=== PATIENT | female | born 1985 | race Caucasian/White ===

== ENCOUNTER 2017-03-10 19:23 | Outpatient (CLI) | payer OTHER ==
[~2017-03-10] VITALS: Ht 152.4 cm; Wt 90.7 kg
[2017-03-10 19:42] VITALS: Ht 152.4 cm; Wt 90.7 kg
--- NOTE | 2017-03-10 20:12 | RADRPT ---
PROCEDURE: US OB biophysical profile. CLINICAL INDICATION: Evaluate well-being TECHNIQUE: Multiple sonographic images of the pelvis were obtained. The images were reviewed on a PACS workstation. COMPARISON: None FINDINGS: There is a single viable intrauterine gestation. There is a normal amount of amniotic fluid with an NILSON = 10.28 cm cm. Cardiac activity is present with 154 beats per minute beats per minute. There is a vertex presentation. The placenta is posterior. Biophysical profile: movement 2/2 tone 2/2. breathing 2/2 NILSON 2/2 Total 03/16 IMPRESSION: 1. Single viable intrauterine gestation in cephalic presentation. 2. The biophysical profile is normal measuring 8. RPTAT:AAJJ . Physician Kelsea Date Time Electronically viewed and signed by Physician Kelsea on 03/10/2017 20:11 /
--- NOTE | 2017-03-10 20:54 | TRIAGE ---
OB Triage Datetime Report Generated by CPN: 03/10/2017 20:54 Datetime: 03/10/2017 20:45 Stage of : OB Triage Datetime: 03/10/2017 20:22 Labor Evaluation Frequency: OCC Monitor Mode: External Duration (sec)2399: 60-90 Pattern: Normal: <= 5 Contractions in 10 Minutes Heart Rate FHR Baseline Rate: 135 Monitor Mode: External US FHR Baseline Changes: No Baseline Change Variability: Moderate 6-25 bpm Accelerations: 15X15 Datetime: 03/10/2017 19:40 Stage of : OB Triage Datetime: 03/10/2017 19:35 Assessment Type: Triage Maternal Assessment Level of Consciousness: Fully Conscious Headache: Denies Blurred Vision: No Respiratory Effort: Unlabored; Regular Rhythm; Equal Expansion Nausea/Vomiting: Denies RUQ Epigastric Pain: Denies Facial Edema: None Fall Risk Assessment History of Falling: (0) No Secondary Diagnosis: (0) No Ambulatory Aid: (0) Bedrest/Nurse Assist IV Therapy: (0) No Gait: (0) Normal/Bedrest/Immobile Mental Status: (0) Oriented to Own Ability Fall Score: 0 Fall Risk Score Definition: No Risk: No action required Datetime: 03/10/2017 19:28 Time of Arrival: 03/10/2017 19:22 EGA: 37.4 Arrived By: Ambulatory Arrived From: Office Chief Complaint: SENT IN FROM OFFICE WITH ORDERS FOR WORKUP REGARDING C/O DFM Movement: Decreased Contractions: Denies/Absent Rupture of Membranes: Denies Vaginal Discharge: Denies Recent Sexual Intercouse: Denies Abdominal Trauma: Not Applicable Initial Plan: EFM, BPP, CALL OB
--- NOTE | 2017-03-10 23:59 | PN ---
Triage Information Date/Time March 10, 2017 Reason for visit: DFM Weeks of Gestation 37 weeks and 4 days /Para 2 para 1 Diabetes: none Hypertention: none Additional information 31 years old female with IUP at 37 weeks and 4 days presented with complaint of decreased movement. Denies any LOF or uterine contractions. had scant light spotting today after she wiped. Denies any vaginal bleeding Has a history of section x 1. Scheduled for repeat C/S at 39 weeks. Objective Heart Rate: 130's Contractions: None Results/Medications Imaging Results PROCEDURE: US OB biophysical profile. CLINICAL INDICATION: Evaluate well-being TECHNIQUE: Multiple sonographic images of the pelvis were obtained. The images were reviewed on a PACS workstation. COMPARISON: None FINDINGS: There is a single viable intrauterine gestation. There is a normal amount of amniotic fluid with an NILSON = 10.28 cm cm. Cardiac activity is present with 154 beats per minute beats per minute. There is a vertex presentation. The placenta is posterior. Biophysical profile: movement 2/2 tone 2/2. breathing 2/2 NILSON 2/2 Total 8/8 IMPRESSION: 1. Single viable intrauterine gestation in cephalic presentation. 2. The biophysical profile is normal measuring 8/8. RPTAT:AAJJ . Disposition: Discharge Assessment/Plan IUP at 37 weeks and 4 days Decreased movement testing reassuring Scant spotting, likely from cervix No evidence of labor DC home Adequate hydration Follow-up within 24-48 hours with OB office Return to triage for any other concerns including decreased movement, contractions or bleeding or any other concerns.. FARHANA CUBA MD Mar 10, 2017 23:59
[2017-03-17] MEDS ORDERED: PREN-93 PO (06:15)
== END 2017-03-10 20:45 | disposition home or self-care (01) ==
LOC: OBT 19:23 → L-D 19:24 → OBT 20:45
PROVIDERS: ATTEND Obstetrics & Gynecology
DX: O36.8130 Decreased fetal movements, third trimester, not applicable or unspecified (principal); Z3A.37 37 weeks gestation of pregnancy; O34.219 Maternal care for unspecified type scar from previous cesarean delivery
CPT/HCPCS: 76818; Z7500; G0463

== ENCOUNTER 2017-03-17 06:05 | Inpatient (IN) | END 2017-03-20 14:30 | disposition home or self-care (01) | DRG 766 | DX: O34.211 Maternal care for low transverse scar from previous cesarean delivery (principal); E66.9 Obesity, unspecified; O99.214 Obesity complicating childbirth; Z68.38 Body mass index [BMI] 38.0-38.9, adult; Z23 Encounter for immunization; Z3A.38 38 weeks gestation of pregnancy; Z37.0 Single live birth ==